=== PATIENT | male | born 1985 | race Caucasian/White ===

== ENCOUNTER 2016-11-07 16:50 | Emergency (ER) | payer OTHER ==
[~2016-11-07] VITALS: Ht 180.3 cm; Wt 60.5 kg
[2016-11-07 16:56] VITALS: BP 120/76; PULSE 92; RESP 18; O2SAT 97
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
[2016-11-07 18:04] LABS: BASOPHILS % (AUTO) 0.4 % (0-3); MONOCYTES % (AUTO) 6.7 % (4-12); Mean Corpuscular Hemoglobin 28.5 pg (27.0-35.0); Mean Corpuscular Volume 82.9 fL (81-100); NEUTROPHILS % (AUTO) 64.7 % (40-74); Platelet Count 202 bil/L (150-400)
[2016-11-07] MEDS ORDERED: HYDROmorphone 0.5 mg/0.5 mL iSecure Syringe IVPUSH PRN (18:35)
[2016-11-07] MEDS ORDERED: 0.9% Sodium Chloride 1,000 ML IV ONE (18:35)
[2016-11-07] MEDS ORDERED: Ondansetron 2 mg/mL 2 mL Inj IVPUSH PRN (18:35)
[2016-11-07] MEDS ORDERED: Iohexol 300 mg/mL 30 mL Inj PO ONE (18:40)
--- NOTE | 2016-11-07 21:38 | DRSVH ---
PROCEDURE: CT ABDOMEN AND PELVIS WITH CONTRAST ([id number]) INDICATIONS: 31 year-old male with right lower quadrant abdominal pain. TECHNIQUE: After the administration of oral and intravenous contrast, 5 mm thick sections acquired from the diap hragms to the symphysis. Additional delayed axial images were acquired through the pelvis after more distal oral contrast transit through the small bowel. 5 mm thick coronal and sagittal reformats were performed. For radiation dose reduction, the following was used: automated exposure control, adjus tment of mA and/or kV according to patient size. COMPARISON: None. FINDINGS: Image quality: Excellent. ABDOMEN: Lung bases: Lung bases are clear. Heart size is normal. Solid organs: Liver and spleen are normal in size and enhancement. Gallbladder wall thickness is no rmal. Biliary system is non-dilated. Pancreas enhances normally. No adrenal nodules. Kidneys are normal in size and enhancement, without hydronephrosis. Peritoneum and bowel: Stomach, small bowel, and colon loops are normal in caliber and wall thickness . The appendix appears normal in caliber anterior to the cecal base on axial image 64, but is incomp letely visualized through its length. No free fluid or air. Nodes and vessels: No retroperitoneal or mesenteric adenopathy. Aorta and inferior vena cava are no rmal in caliber. Miscellaneous: No ventral hernias. PELVIS: Genitourinary: Bladder wall thickness is normal. Miscellaneous: No inguinal hernias or adenopathy. Bones: No suspicious bony lesions. No vertebral body compression fractures. IMPRESSION: No imaging explanation for right lower quadrant abdominal pain. Visualized portions of th e appendix appear normal in caliber. Dictated by: Macho Burkett M.D. on 11/07/2016 at 20:10 Approved by: Macho Burkett M.D. on 11/07/2016 at 21:36
[2016-11-07] MEDS ORDERED: _HYDROcodone/APAP 5-325 mg Tablet PO PRN (22:10)
[2016-11-07 22:34] VITALS: BP 116/74; PULSE 86; RESP 18; O2SAT 99
== END 2016-11-07 22:36 | disposition home or self-care (01) ==
LOC: SED 16:50
DX: R10.31 Right lower quadrant pain (principal); R11.0 Nausea; Z98.890 Other specified postprocedural states
CPT/HCPCS: 36415; 74177; 80053; 83690; 83735; 85025; 96361; 96374; 96375; 99285; J1170; J2405; J7030; Q9967